=== PATIENT | female | born 1955 | race Caucasian/White ===

== ENCOUNTER → 2017-03-25 | Outpatient (CLI) | payer MEDICARE | LOC: EXRD 15:23 | DX: M25.511 Pain in right shoulder (principal); M89.8X1 Other specified disorders of bone, shoulder | CPT/HCPCS: 73030 ==

== ENCOUNTER → 2021-02-22 | Outpatient (CLI) | payer MEDICARE, OTHER ==
[~2021-02-22] MED LIST: BENTYL 20MG TAB20 MG PO; ESTRADIOL0.5 MG PO; FLAGYL500 MG PO; IBUPROFEN800 MG PO; LEVAQUIN500 MG PO; LEVOTHYROXINE50 MC1 PO; LISINOPRIL5 MG PO; LORTAB 5-325 M1 EACH PO; NORCO 5-325 TA1 EACH PO; OMEPRAZOLE40 MG PO; PREDNISONE10 MG PO; PREDNISONE2.5 MG PO; PREDNISONE5 MG PO; PRINIVIL10 MG PO; PROTONIX40 MG PO; SULFASALAZINE500 MG PO; SYNTHROID25 MCG PO; ZOCOR40 MG PO; ZOFRAN4 MG PO
[2021-02-22 15:41] LABS: HEMOGLOBIN 13.6 gm/dl (12.3-15.3); RED BLOOD COUNT 4.41 M/UL (4.00-5.10); WHITE BLOOD COUNT 4.9 K/UL (4.5-11.0)
[2021-02-22 16:09] LABS: BUN/CREATININE RATIO 17 (0-10)
== END ==
LOC: LAB 14:36
PROVIDERS: Nurse Practitioner Family
DX: R11.2 Nausea with vomiting, unspecified (principal)
CPT/HCPCS: 80053; 82150; 83690; 85025; 86757

== ENCOUNTER → 2021-04-13 | Day surgery (SDC) | payer MEDICARE | END | disposition home or self-care (01) | LOC: OR 07:08 | DX: D12.2 Benign neoplasm of ascending colon (principal); K31.9 Disease of stomach and duodenum, unspecified; I10 Essential (primary) hypertension; E78.5 Hyperlipidemia, unspecified; K21.9 Gastro-esophageal reflux disease without esophagitis; K57.30 Diverticulosis of large intestine without perforation or abscess without bleeding; M06.9 Rheumatoid arthritis, unspecified; K64.8 Other hemorrhoids; E03.9 Hypothyroidism, unspecified; Z88.5 Allergy status to narcotic agent; Z86.73 Personal history of transient ischemic attack (TIA), and cerebral infarction without residual deficits | CPT/HCPCS: 36415; 80076; J2704; J3010; J7040 ==

== ENCOUNTER → 2021-06-02 | Outpatient (CLI) | payer MEDICARE | LOC: EXRD 05-30 15:30 | DX: G56.01 Carpal tunnel syndrome, right upper limb (principal); M25.531 Pain in right wrist; I87.8 Other specified disorders of veins; I82.611 Acute embolism and thrombosis of superficial veins of right upper extremity | CPT/HCPCS: 93971 ==

== ENCOUNTER → 2021-06-28 | Outpatient (CLI) | payer MEDICARE | LOC: EXRD 13:48 | DX: M81.0 Age-related osteoporosis without current pathological fracture (principal); M85.80 Other specified disorders of bone density and structure, unspecified site | CPT/HCPCS: 77080 ==

== ENCOUNTER → 2021-09-13 | Outpatient (CLI) | payer MEDICARE ==
[2021-09-13 11:59] LABS: RED BLOOD COUNT 4.24 M/UL (4.00-5.10); WHITE BLOOD COUNT 5.7 K/UL (4.5-11.0)
[2021-09-13 12:22] LABS: BUN/CREATININE RATIO 26 (0-10)
== END ==
LOC: LAB 11:32
PROVIDERS: Internal Medicine
DX: M05.79 Rheumatoid arthritis with rheumatoid factor of multiple sites without organ or systems involvement (principal); Z79.899 Other long term (current) drug therapy
CPT/HCPCS: 36415; 80053; 85025; 85652; 86140

== ENCOUNTER → 2021-12-20 | Outpatient (CLI) | payer MEDICARE | LOC: US 12-19 14:00 | DX: E04.1 Nontoxic single thyroid nodule (principal) | CPT/HCPCS: 76536 ==

== ENCOUNTER → 2022-01-16 | Outpatient (CLI) | payer MEDICARE ==
[2022-01-16 13:30] LABS: HEMOGLOBIN 13.1 gm/dl (12.3-15.3); RED BLOOD COUNT 4.07 M/UL (4.00-5.10); WHITE BLOOD COUNT 4.4 K/UL (4.5-11.0)
[2022-01-16 14:09] LABS: BUN/CREATININE RATIO 18 (0-10)
== END ==
LOC: LAB 13:09
PROVIDERS: Nurse Practitioner Family
DX: R50.9 Fever, unspecified (principal)
CPT/HCPCS: 36415; 80053; 85025; 86757

== ENCOUNTER 2022-02-15 01:09 | Emergency (ER) | payer MEDICARE | END 2022-02-15 06:55 | disposition home or self-care (01) | LOC: ER1 01:09 | DX: S00.83XA Contusion of other part of head, initial encounter (principal); I10 Essential (primary) hypertension; Z88.6 Allergy status to analgesic agent; Z23 Encounter for immunization; Y04.8XXA Assault by other bodily force, initial encounter | CPT/HCPCS: 70450; 70486; 72125; 90471; 90715; 99284 ==

== ENCOUNTER → 2022-06-22 | Outpatient (CLI) | payer MEDICARE, OTHER | LOC: RAD 13:04 | DX: J20.9 Acute bronchitis, unspecified (principal) | CPT/HCPCS: 71046 ==

== ENCOUNTER → 2022-07-11 | Outpatient (CLI) | payer MEDICARE, OTHER ==
[2022-07-11 18:26] LABS: HEMOGLOBIN 11.7 gm/dl (12.3-15.3); RED BLOOD COUNT 3.98 M/UL (4.00-5.10); WHITE BLOOD COUNT 10.5 K/UL (4.5-11.0)
[2022-07-11 18:58] LABS: BUN/CREATININE RATIO 22 (0-10)
== END ==
LOC: LAB 17:00
PROVIDERS: Nurse Practitioner Family
DX: T14.8XXA Other injury of unspecified body region, initial encounter (principal); W57.XXXA Bitten or stung by nonvenomous insect and other nonvenomous arthropods, initial encounter; R49.0 Dysphonia; Z86.16 Personal history of COVID-19
CPT/HCPCS: 80053; 85025; 86753; 86757